=== PATIENT | female | born 1950 | race African-American/Black ===

== ENCOUNTER 2021-06-24 15:55 | Emergency (ER) | payer MEDICARE, OTHER ==
[2021-06-24 17:18] LABS: Hemoglobin 11.3 g/dL (12.0-15.5); Mean Corpuscular HGB CONC 30.5 g/dL (32.0-36.0); Mean Corpuscular Hemoglobin 25.2 pg (27.0-33.0); Mean Corpuscular Volume 82.6 fl (81.6-98.3); Mean Platelet Volume 9.1 fl (7.4-10.4); Platelet Count 319 10x3/uL (150-450); RBC Distribution Width 14.6 % (11.5-14.5); Red Blood Cell (RBC) Count 4.48 10x6/uL (3.90-5.03); White Blood Cell (WBC) Count 4.5 10x3/uL (3.5-10.5)
[2021-06-24 17:40] LABS: ALT (SGPT) 7 U/L (8-55); AST (SGOT) 18 U/L (5-34); Albumin 4.2 g/dL (3.4-4.8); Alkaline Phosphatase 95 U/L (40-110); Anion Gap 13 mmol/L (10-20); BUN (Urea Nitrogen) 14 mg/dL (9.8-20.1); Bilirubin, Total 0.3 mg/dL (0.2-1.2); Calc. Creatinine Clearance 0 mL/min (70-130); Calcium 9.2 mg/dL (7.8-10.44); Carbon Dioxide 26 mmol/L (23-31); Chloride 108 mmol/L (98-107); Globulin 3.9 g/dL (2.4-3.5); Glucose 105 mg/dL (83-110); Magnesium 1.9 mg/dL (1.6-2.6); Potassium 3.5 mmol/L (3.5-5.1); Protein, Total 8.1 g/dL (5.8-8.1); Sodium 143 mmol/L (136-145)
[2021-06-24 18:08] LABS: Band 1 % (5-11); Eosinophils 3 % (0-10); Lymphocytes 13 % (21-51); Monocytes 11 % (0-10); Neutrophil 72 % (42-75)
[2021-06-24 18:09] LABS: MDiff Complete? YES
[2021-06-24 18:10] LABS: Elliptocytes SLIGHT = 2-5 cells (100X) (0-1/hpf); Hypochromia SLIGHT = 6-15 cells (100X) (0-5/hpf)
[2021-06-24 18:11] LABS: Platelet Morphology Comment Appears Adequate
[2021-06-24] MEDS ORDERED: Ventolin HFA Inhaler 60 PUFF INHALER ONE (19:27)
[2021-06-24] MEDS ORDERED: Dexamethasone 10 MG/ML VIAL ONE (19:27)
[2021-06-24 19:54] LABS: Bilirubin Neg (Negative); Blood, Urine Negative (Negative); Clarity Clear (Clear); Glucose, Urine (Dipstick) Normal (Negative); Ketone, Urine Negative (Negative); Leukocyte 25 (Negative); Nitrite Negative (Negative); Protein, Urine (Dipstick) Negative (Neg-Trace); Specific Gravity, Urine 1.005 (1.002-1.036); Urobilinogen Normal mg/dL (Less than 2); pH, Urine 6.5 (5.0-9.0)
[2021-06-24 20:14] LABS: Bacteria/HPF Rare-Few HPF (None Seen); Mucous/LPF Rare LPF (<2+); RBC/HPF None Seen HPF (0-3); Squamous Epithelial 0-3 HPF (0-3); WBC/HPF 0-3 HPF (0-3)
== END 2021-06-24 21:10 | disposition home or self-care (01) ==
LOC: CSHERS 15:55
DX: J44.1 Chronic obstructive pulmonary disease with (acute) exacerbation (principal); E03.9 Hypothyroidism, unspecified; F17.210 Nicotine dependence, cigarettes, uncomplicated
CPT/HCPCS: 36415; 71046; 80053; 81003; 81015; 83735; 83880; 84484; 85025; 93005; J1100

== ENCOUNTER 2024-07-04 17:49 | Emergency (ER) | payer OTHER, MEDICAID ==
[2024-07-04] MEDS ORDERED: Dexamethasone 10 MG/ML VIAL ONE (18:09)
[2024-07-04] MEDS ORDERED: Ipratropium/Albuterol 3 ML NEB ONE (18:18)
[2024-07-04 18:25] LABS: #Basophils Less than 0.03 10x3/uL (0.0-0.2); #Eosinophils Less than 0.03 10x3/uL (0.0-0.5); #Monocytes 0.56 10x3/uL (0.0-1.1); #Neutrophils 5.92 10x3/uL (1.5-8.4); %Basophils 0.3 % (0.0-2.0); %Eosinophils 0.1 % (0.0-6.0); %Lymphocytes 12.1 % (18.0-47.0); %Monocytes 7.5 % (0.0-10.0); %Neutrophils 79.7 % (40.0-75.0); Hematocrit 43.9 % (34.9-44.5); Mean Corpuscular HGB CONC 31.9 g/dL (32.0-36.0); Mean Corpuscular Hemoglobin 26.8 pg (27.0-33.0); Mean Corpuscular Volume 83.9 fL (81.6-98.3); Mean Platelet Volume 8.7 fL (7.4-10.4); Platelet Count 280 10x3/uL (150-450); RBC Distribution Width 14.1 % (11.5-14.5); Red Blood Cell (RBC) Count 5.23 10x6/uL (3.90-5.03); White Blood Cell (WBC) Count 7.43 10x3/uL (3.5-10.5)
[2024-07-04 18:38] LABS: PTT 25.9 sec (22.0-33.0)
[2024-07-04 18:41] LABS: ALT (SGPT) 8 U/L (Less than 34); AST (SGOT) 22 U/L (11-34); Albumin 4.2 g/dL (3.1-4.5); Alkaline Phosphatase 102 U/L (40-110); Anion Gap 15 mmol/L (10-20); BUN (Urea Nitrogen) 17 mg/dL (9.8-20.1); Bilirubin, Total 0.5 mg/dL (0.3-1.2); Calc. Creatinine Clearance 0 mL/min (70-130); Calcium 10.1 mg/dL (7.8-10.44); Carbon Dioxide 23 mmol/L (23-31); Chloride 107 mmol/L (98-107); Estimated GFR 66; Globulin 4.4 g/dL (2.4-3.5); Glucose 125 mg/dL (83-110); Potassium 3.9 mmol/L (3.5-5.1); Protein, Total 8.6 g/dL (5.8-8.1); Sodium 141 mmol/L (136-145)
[2024-07-04 18:44] LABS: Troponin I Less than 0.010 ng/mL (< 0.028)
== END 2024-07-04 23:50 | disposition home or self-care (01) ==
LOC: CSHERS 17:49
DX: J44.1 Chronic obstructive pulmonary disease with (acute) exacerbation (principal); Z87.891 Personal history of nicotine dependence
CPT/HCPCS: 71275; 80053; 83880; 84145; 84484; 85025; 85610; 85730; 93005; 94640; 94760; J1100; 36415; 96374; J7620